=== PATIENT | female | born 2000 | race Caucasian/White ===

== ENCOUNTER 2023-07-22 04:21 | Emergency (ER) | payer OTHER, SELFPAY ==
--- NOTE | ~2023-07-22 | CT_ITS ---
CT of the Abdomen and Pelvis: Indication: Abdominal pain Technique: 2.5 mm axial scans were obtained through the abdomen and pelvis following intravenous adm inistration of 100 cc of Omnipaque 350. Dose reduction technique was used on this scan by utilizing a utomated exposure control and iterative reconstruction technique. The dose-length product (DLP) was 3 75.05 mGy-cm. Findings: Scans through the lung bases are unremarkable. There is periportal edema, nonspecific. The liver, spleen, pancreas, gallbladder, adrenals and kidney s are otherwise within normal limits. No evidence of aortic aneurysm. No lymphadenopathy. No bowel obstruction or bowel wall thickening. There is no evidence to suggest acute appendicitis. Images through the pelvis were performed. Urinary bladder unremarkable. Probable 2 cm right adnexal c yst present. Small amount of free fluid present in the pelvis. There is minimal haziness of pelvic fa t planes. IUD in place. Impression: Small amount of free fluid in pelvis with mild haziness of pelvic fat planes. Findings are nonspecifi c. Consider ovarian cyst rupture. 2 cm probable right ovarian cyst. Nonspecific periportal edema. Reviewed, dictated and finalized at location . [employer]ER[employer] Impression: Small amount of free fluid in pelvis with mild haziness of pelvic fat planes. F indings are nonspecific. Consider ovarian cyst rupture. 2 cm probable right ovarian cyst. Nonspecific periportal edema.
[2023-07-22 04:25] VITALS: PULSE 99; RESP 20; TEMP 36.8; O2SAT 100
[2023-07-22 04:50] VITALS: BP 111/60; PULSE 59; RESP 16; TEMP 36.4; O2SAT 100
--- NOTE | 2023-07-22 04:59 | ED.GENADULT ---
HPI - General Adult General Chief complaint: Abdominal Pain Stated complaint: abd pain Time Seen by Provider: 07/22/23 04:51 History of Present Illness HPI narrative: Patient is a 23-year-old female who presents the emergency department with chief complaint of abdominal pain. Patient reports started having epigastric pain around 1 AM the patient reports the pain is sharp reports it radiates to her back patient reports nausea and vomiting. Patient states that pain is not improved by anything nor is it worse and by anything. Patient reports no prior abdominal surgeries reports no fever Related Data Allergies Allergy/AdvReac Type Severity Reaction Status Date / Time Penicillins Allergy Rash Verified 07/22/23 04:22 Review of Systems Review of Systems: A 10 system review of systems was completed on the patient and is negative except for what is stated in the HPI. Nursing and ancillary documentation was reviewed. Exam Narrative: GENERAL: Well-appearing, well-nourished, and in mild acute pain distress. HEAD: Normocephalic, atraumatic. EYES: PERRLA and EOMI. ENT: Nares clear, no rhinorrhea or epistaxis. Mucous membranes moist. NECK: Supple. CHEST: Clear to auscultation. No respiratory distress. HEART: Regular rate and rhythm. No murmur heard. Normal peripheral pulses. ABDOMEN: Soft, mild tenderness in the epigastric region, nondistended, normal active bowel sounds. No guarding no rebound EXTREMITIES: Normal range of motion. No edema. SKIN: Warm, dry, no rash. NEURO: No focal deficits. Alert and oriented x3. PSYCH: Normal mood and affect. Course Vital Signs Vital signs: Vital Signs Temperature 36.8 C 07/22/23 04:25 Pulse Rate 99 07/22/23 04:25 Respiratory Rate 20 07/22/23 04:25 Pulse Oximetry 100 07/22/23 04:25 Oxygen Delivery Room Air 07/22/23 04:25 Temperature 36.4 C 07/22/23 04:50 Pulse Rate 59 L 07/22/23 04:50 Respiratory Rate 16 07/22/23 04:50 Blood Pressure 111/60 07/22/23 04:50 Pulse Oximetry 100 07/22/23 04:50 Oxygen Delivery Room Air 07/22/23 04:25 Medical Decision Making [facility] Narrative Medical decision making narrative: Differential diagnosis includes pancreatitis, cholecystitis, cholelithiasis, ureterolithiasis, ovarian cyst, appendicitis, diverticulitis, colitis Laboratory studies were obtained and the patient showed a white count of 16.8 electrolytes are within normal limits lipase was normal urinalysis showed 2+ ketones otherwise was within normal limits. CT scan of the abdomen pelvis showed Small amount of free fluid in pelvis with mild haziness of pelvic fat planes. Findings are nonspecific. Consider ovarian cyst rupture. 2 cm probable right ovarian cyst. Nonspecific periportal edema. Patient is feeling much better at this time will be discharged home to follow-up with her primary care provider Vital Signs Vital Signs: Vital Signs Temperature 36.8 C 07/22/23 04:25 Pulse Rate 99 07/22/23 04:25 Respiratory Rate 20 07/22/23 04:25 Pulse Oximetry 100 07/22/23 04:25 Oxygen Delivery Room Air 07/22/23 04:25 Temperature 36.4 C 07/22/23 04:50 Pulse Rate 59 L 07/22/23 04:50 Respiratory Rate 16 07/22/23 04:50 Blood Pressure 111/60 07/22/23 04:50 Pulse Oximetry 100 07/22/23 04:50 Oxygen Delivery Room Air 07/22/23 04:25 Lab Data 07/22/23 04:55 07/22/23 04:55 Labs: Lab Results 07/22/23 07/22/23 Range/Units 04:55 05:44 WBC 16.8 H (4.5-10.0) K/mm3 RBC 4.16 L (4.2-5.4) M/mm3 Hgb 12.8 (12.0-15.0) g/dL Hct 40.0 (37.0-47.0) % MCV 96.2 (80-100) fl MCH 30.8 (26-34) pg MCHC 32.0 (32-36) g/dl RDW 12.3 (11.5-14.5) % Plt Count 245 (150-375) k/mm3 MPV 9.2 (7.4-10.4) fl Immature Gran % (Auto) 0.4 (0-0.5) % Neut % (Auto) 80.5 H (45.5-73.1) % Lymph % (Auto) 13.5 L (18.3-44.2) % [place] % (Auto) 4.9 (2.6-8.5) % Eos % (Aut
[2023-07-22] MEDS: ONDANSETRON INJ 4 MG/2 ML VIAL IV PUSH (05:02)
[2023-07-22] MEDS: SODIUM CHLORIDE 0.9% IV 1,000 ML 999 ML IV CONT (05:02)
[2023-07-22] MEDS: MORPHINE SULFATE (*CRX) 4 MG/ML INJ IV PUSH (05:03)
[2023-07-22] MEDS: DICYCLOMINE HCL INJ 20 MG/2 ML VIAL IM (05:06)
[2023-07-22 05:08] LABS: Basophils Percent Auto 0.2 % (0.2-1.2); Eosinophils Absolute Auto 0.1 K/mm3 (0-0.3); Eosinophils Percent Auto 0.5 % (0-4.4); Hemoglobin 12.8 g/dL (12.0-15.0); Immature Granulocyte Absolute 0.07 K/mm3 (0.00-0.031); Immature Granulocyte Percent A 0.4 % (0-0.5); Lymphocytes Absolute Auto 2.27 K/mm3 (0.9-3.2); Lymphocytes Percent Auto 13.5 % (18.3-44.2); Mean Corpuscular Hemoglobin 30.8 pg (26-34); Mean Corpuscular Volume 96.2 fl (80-100); Mean Platelet Volume 9.2 fl (7.4-10.4); Monocytes Absolute Auto 0.8 K/mm3 (0.1-0.6); Monocytes Percent Auto 4.9 % (2.6-8.5); Neutrophils Absolute Auto 13.6 K/mm3 (1.3-6.7); Neutrophils Percent Auto 80.5 % (45.5-73.1); Platelet Count Result 245 k/mm3 (150-375); Red Blood Count 4.16 M/mm3 (4.2-5.4); Red Cell Distribution Width 12.3 % (11.5-14.5); White Blood Count 16.8 K/mm3 (4.5-10.0)
[2023-07-22 05:18] LABS: Alanine Aminotransferase 15 U/L (6-35); Albumin Level 4.4 g/dL (3.5-5.1); Alkaline Phosphatase 59 U/L (38-126); Anion Gap 10 mmol/L (8-16); Aspartate Amino Transferase 21 U/L (14-36); Bilirubin,Total 0.6 mg/dL (0.2-1.3); Blood Urea Nitrogen 10 mg/dL (7-17); Calcium 8.8 mg/dL (8.4-10.2); Carbon Dioxide 25 mmol/L (22-30); Chloride 103 mmol/L (98-107); Estimated CRCL calculation 93 ml/min; Estimated Glomerular Filt Rate > 60; Glucose 136 mg/dL (65-110); Lipase 33 U/L (23-300); Potassium 3.5 mmol/L (3.4-5.0); Sodium 138 mmol/L (137-145)
[2023-07-22 05:51] LABS: Appearance Urine Clear (Clear); Bilirubin Urine Negative (Negative); Blood Urine Negative (Negative); Color Urine Yellow (Yellow); Glucose Urine UA Negative (Negative); Ketones Urine 2+ mg/dL (Negative); Leukocyte Esterase Ur Negative LEU/UL (Negative); Nitrate Urine Negative (Negative); Protein Urine Negative (Negative); Specific Grav Ur 1.025 (1.001-1.035); Urobilinogen Urine 0.2 mg/dL (<2.0)
[2023-07-22 05:52] LABS: Add Urine Microscopic? NO
[2023-07-22 06:34] VITALS: BP 98/52; PULSE 60; RESP 14; TEMP 36.8; O2SAT 100
== END 2023-07-22 06:35 | disposition home or self-care (01) ==
PROVIDERS: Emergency Provider Emergency Medicine
DX: N83.201 Unspecified ovarian cyst, right side (principal)
CPT/HCPCS: 36415; 74177; 80053; 81003; 81025; 83690; 85025; 96361; 96372; 96374; 96375; 99284; J0500; J2270; J2405; J7030; Q9967